=== PATIENT | female | born 1980 | race Two or more races ===

== ENCOUNTER 2021-01-30 18:01 | Emergency (ER) | payer BC, OTHER ==
[~2021-01-30] VITALS: Ht 190.5 cm; Wt 74.8 kg
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
--- NOTE | 2021-01-30 18:50 | NUR ---
[facility] AT BEDSIDE.
[2021-01-30] MEDS ORDERED: ACETAMINOPHEN 325 MG TABLET PO ONE (20:00)
[2021-01-30] MEDS ORDERED: ACETAMINOPHEN 325 MG TABLET ONE (20:10)
--- NOTE | 2021-01-30 20:29 | NUR ---
returned from radiology
[2021-01-30] MEDS ORDERED: IBUP-1955 PO (21:08)
--- NOTE | 2021-01-30 21:45 | NUR ---
Patient discharged to home in stable condition. Written and verbal after care instructions given. Patient verbalizes understanding of instruction. Pt ambulatory with a steady gait
[2021-01-30 22:24] VITALS: BP 112/79
== END 2021-01-30 21:45 | disposition home or self-care (01) ==
LOC: ER 18:16
DX: S09.8XXA Other specified injuries of head, initial encounter (principal); D57.1 Sickle-cell disease without crisis; F17.200 Nicotine dependence, unspecified, uncomplicated; Z88.2 Allergy status to sulfonamides; Z88.8 Allergy status to other drugs, medicaments and biological substances; Z59.00 Homelessness unspecified; Y08.89XA Assault by other specified means, initial encounter; Y93.89 Activity, other specified; Y92.89 Other specified places as the place of occurrence of the external cause; Y99.8 Other external cause status
CPT/HCPCS: 70450-TC